=== PATIENT | female | born 1950 | race Caucasian/White ===

== ENCOUNTER → 2017-04-18 | Outpatient (CLI) | payer MEDICARE | END | disposition home or self-care (01) | LOC: EDSTATUS 10:00 → RAD 14:51 → EDSTATUS 15:30 | PROVIDERS: ATTEND Family Medicine | DX: R51 Headache (principal); R42 Dizziness and giddiness; H53.8 Other visual disturbances | CPT/HCPCS: 70544; 70551 ==

== ENCOUNTER → 2017-08-21 | Outpatient (CLI) | payer MEDICARE | END | disposition home or self-care (01) | LOC: CFH 15:10 | PROVIDERS: ATTEND Family Medicine | DX: M54.5 Low back pain (principal); M25.552 Pain in left hip | CPT/HCPCS: 72110 ==

== ENCOUNTER → 2018-05-11 | Outpatient (CLI) | payer MEDICARE | END | disposition home or self-care (01) | LOC: CFH 12:15 | PROVIDERS: ATTEND Orthopaedic Surgery | DX: M51.36 Other intervertebral disc degeneration, lumbar region (principal) | CPT/HCPCS: 72148 ==

== ENCOUNTER → 2019-01-31 | Outpatient (CLI) | payer MEDICARE | END | disposition home or self-care (01) | LOC: CVU 10:47 | PROVIDERS: ATTEND Internal Medicine Cardiovascular Disease | DX: I65.23 Occlusion and stenosis of bilateral carotid arteries (principal); E78.2 Mixed hyperlipidemia | CPT/HCPCS: 93880 ==

== ENCOUNTER 2019-07-09 13:25 | Emergency (ER) | payer MEDICARE, OTHER ==
[~2019-07-09] VITALS: Ht 157.5 cm; Wt 50.0 kg
[2019-07-09 13:30] VITALS: BP 136/80
[2019-07-09] MEDS ORDERED: HYDROcodone/APAP 5/325 TABLET PO PRN (14:00)
[2019-07-09] MEDS ORDERED: DIPH,PERTUSS(ACELL),TET VAC/PF 0.5 ML IM-VACC ONE ×2 (14:00→15:02)
--- NOTE | 2019-07-09 14:12 | NUR ---
pt to radiology at this time, pt and family updated with POC.
[2019-07-09] MEDS ORDERED: NEOSPORIN OINT. PKT 1 PACKET ONE (14:14)
--- NOTE | 2019-07-09 14:45 | NUR ---
BEDSIDE REPORT GIVEN TO STEPHANIE MCKEON, PT IS RECEIVING WOUND CARE WITH EDT AT THIS TIME. RIMMA, FAMILY AT BS.
--- NOTE | 2019-07-09 15:49 | NUR ---
Patient/Caregiver given discharge instructions and they have confirmed that they understand the instructions. Patient ambulatory with steady gait. PT AMBULATED SAFELY. PT REFUSED CANE FOR SUPPORT. FAMILY AWARE.
== END 2019-07-09 15:51 | disposition home or self-care (01) ==
LOC: ED 15:33
DX: S50.01XA Contusion of right elbow, initial encounter (principal); S80.01XA Contusion of right knee, initial encounter; S80.02XA Contusion of left knee, initial encounter; W18.30XA Fall on same level, unspecified, initial encounter; Y93.89 Activity, other specified; Y92.89 Other specified places as the place of occurrence of the external cause; Y99.8 Other external cause status
CPT/HCPCS: 90471; 90715; 99283

== ENCOUNTER 2021-05-03 11:45 | Observation (INO) | payer MEDICARE ==
[~2021-05-03] VITALS: Ht 157.5 cm; Wt 50.9 kg
[2021-05-04 08:22] VITALS: BP 160/62
== END 2021-05-04 10:26 | disposition home or self-care (01) ==
LOC: CACL 11:45 → ORIP 15:01 → 5SO 16:41
PROVIDERS: ADMIT Internal Medicine Cardiovascular Disease; ATTEND Internal Medicine Cardiovascular Disease
DX: I25.10 Atherosclerotic heart disease of native coronary artery without angina pectoris (principal); I65.23 Occlusion and stenosis of bilateral carotid arteries; E78.2 Mixed hyperlipidemia; I10 Essential (primary) hypertension; E03.9 Hypothyroidism, unspecified; K21.9 Gastro-esophageal reflux disease without esophagitis; M19.90 Unspecified osteoarthritis, unspecified site; Z79.899 Other long term (current) drug therapy
CPT/HCPCS: 36415; 80048; 85025; 93005; 93458; 93571; 96374; 99156; 99157; C1725; C1769; C1874; C1887; C1894; C9600; G0378; J0583; J1200; J1644; J2250; J2405; J3010; Q9967